=== PATIENT | female | born 1980 | race Caucasian/White ===

== ENCOUNTER 2018-02-13 13:07 | Emergency (ER) | payer MEDICAID ==
[~2018-02-13] VITALS: Ht 170.2 cm; Wt 61.2 kg
[2018-02-13 13:18] VITALS: Ht 170.2 cm; Wt 61.2 kg
[2018-02-13 14:05] VITALS: BP 135/90
== END 2018-02-13 14:05 | disposition home or self-care (01) ==
LOC: ED 13:07
DX: F41.9 Anxiety disorder, unspecified (principal); F25.9 Schizoaffective disorder, unspecified; F31.9 Bipolar disorder, unspecified

== ENCOUNTER 2019-10-23 17:18 | Emergency (ER) | payer BC ==
[~2019-10-23] VITALS: Ht 170.2 cm; Wt 58.5 kg
[2019-10-23 18:15] VITALS: BP 130/82; Ht 170.2 cm; Wt 58.5 kg
== END 2019-10-23 21:31 | disposition left against medical advice (07) ==
LOC: ED 17:18
DX: R10.12 Left upper quadrant pain (principal); R42 Dizziness and giddiness; Z53.21 Procedure and treatment not carried out due to patient leaving prior to being seen by health care provider

== ENCOUNTER 2020-01-03 21:38 | Emergency (ER) | payer BC ==
[~2020-01-03] VITALS: Ht 172.7 cm; Wt 52.2 kg
[2020-01-03 21:49] VITALS: Ht 172.7 cm; Wt 52.2 kg
[2020-01-04 00:51] VITALS: BP 117/76
== END 2020-01-04 00:51 | disposition home or self-care (01) ==
LOC: ED 21:38
DX: M54.9 Dorsalgia, unspecified (principal); G89.29 Other chronic pain

== ENCOUNTER 2020-01-08 16:59 | Emergency (ER) | payer BC ==
[~2020-01-08] VITALS: Ht 170.2 cm; Wt 51.3 kg
[2020-01-08 17:27] VITALS: Ht 170.2 cm; Wt 51.3 kg
[2020-01-08 18:01] LABS: BASOPHIL % 0.2 % (0-2); RED CELL DISTRIBUTION WIDTH 13.4 % (11.5-14.5)
[2020-01-08 18:03] LABS: PLATELET COUNT 502 x10^3mcL (130-400)
[2020-01-08 18:08] LABS: CALCIUM 8.9 mg/dL (8.5-10.1); CARBON DIOXIDE 33.9 mmol/L (21-32); CHLORIDE SERUM 97 mmol/L (98-107); CREATININE SERUM 0.6 mg/dL (0.6-1.0); GFR1 > 60 mL/min; GLUCOSE SERUM 100 mg/dL (74-106); SODIUM SERUM 135 mmol/L (136-145)
[2020-01-08 18:13] LABS: ALKALINE PHOSPHATASE 86 U/L (46-116); ALT/SGPT 42 U/L (14-59); AST/SGOT 25 U/L (15-37); BILIRUBIN TOTAL 0.2 mg/dL (0.20-1.00); TOTAL PROTEIN, SERUM 6.8 g/dL (6.4-8.2)
[2020-01-08 18:18] LABS: ALBUMIN 2.6 g/dL (3.4-5.0)
[2020-01-08 18:29] LABS: UA SPECIFIC GRAVITY >=1.030 (1.005-1.035); microscopic required? YES; urine erythrocyte 3+ (NEGATIVE)
[2020-01-08 19:07] LABS: AMPHETAMINE QUAL UR POSITIVE (See below)
[2020-01-08 21:12] VITALS: BP 122/82
== END 2020-01-08 21:28 | disposition home or self-care (01) ==
LOC: ED 16:59
PROVIDERS: Emergency Medicine
DX: F15.10 Other stimulant abuse, uncomplicated (principal); R55 Syncope and collapse; R53.1 Weakness
CPT/HCPCS: 36415; G0480

== ENCOUNTER 2020-01-27 19:50 | Emergency (ER) | payer MEDICAID ==
[~2020-01-27] VITALS: Ht 170.2 cm; Wt 52.6 kg
[2020-01-27 20:10] VITALS: Ht 170.2 cm; Wt 52.6 kg
[2020-01-27 22:05] VITALS: BP 126/96
== END 2020-01-27 22:06 | disposition home or self-care (01) ==
LOC: ED 19:50
DX: T76.21XA Adult sexual abuse, suspected, initial encounter (principal); F20.9 Schizophrenia, unspecified; F31.9 Bipolar disorder, unspecified